=== PATIENT | female | born 1975 | race Caucasian/White ===

== ENCOUNTER → 2020-07-31 08:17 | Outpatient (CLI) | payer BC, SELFPAY ==
--- NOTE | ~2020-07-31 | XR_ITS ---
XR lumbar spine 2-3V DATE: 07/31/2020 09:08 INDICATION: Back pain TECHNIQUE: AP, lateral, coned lateral lumbosacral views COMPARISON: None FINDINGS: There is mild rotatory levoscoliosis of the lumbar spine. There is mildly severe degenerative disease at L1-2 through and L5-S1 and mild degenerative disease e lsewhere in the lumbar spine. No fracture or bone destruction is evident. The included lower thoracic and lumbar pedicles are intac t. The sacroiliac joints appear normal. IMPRESSION: Mild rotatory levoscoliosis and multilevel degenerative disc disease Reviewed, dictated and finalized at location B. AMMUNITION INSPECTOR IMPRESSION: Mild rotatory levoscoliosis and multilevel degenerative disc diseas e
== END ==
PROVIDERS: PCP Family Medicine; Visit Provider Family Medicine
DX: M51.36 Other intervertebral disc degeneration, lumbar region (principal)
CPT/HCPCS: 72100

== ENCOUNTER → 2020-09-10 09:49 | Outpatient (CLI) | payer BC, SELFPAY ==
--- NOTE | ~2020-09-10 | MR_ITS ---
EXAMINATION: MR lumbar spine wo con DATE: 09/10/2020 10:23 INDICATION: Low back pain. Right lower limb pain. TECHNIQUE: Magnetic resonance imaging (MRI) of the lumbar spine was performed without intravenous con trast. Sequences included sagittal T2-weighted FSE, sagittal T2-weighted FS FSE, sagittal T1-weighted FSE, and axial T2-weighted FSE. COMPARISON: None FINDINGS: There is 9 degrees levocurvature of lumbar spine. There is 3 mm retrolisthesis of L3 on L4. Vertebral body heights are normal. There is moderately decreased disc height at L1-L2, mildly decrea sed disc height at L3-L4, and moderately decreased disc height at L5-S1. The distal spinal cord signa l intensity is normal. The conus medullaris is at L1-L2. The following disc levels are specifically d iscussed: L1-L2: The disc is bulging. There is mild bilateral facet joint osteoarthritis. There is mild left ne ural foraminal stenosis. There is mild central canal stenosis. L2-L3: The disc does not extend beyond the endplate margin. There is mild bilateral facet joint osteo arthritis. There is no neural foraminal stenosis. There is no central canal stenosis. L3-L4: The disc is bulging with superimposed left foraminal extrusion. There is mild bilateral facet joint osteoarthritis. There is mild bilateral neural foraminal stenosis. There is mild central canal stenosis. L4-L5: The disc is bulging and has an annular fissure. There is mild right and moderate left facet monalisa int osteoarthritis. There is mild bilateral neural foraminal stenosis. There is mild central canal st enosis. L5-S1: The disc is bulging and has an annular fissure. There is mild right and severe left facet join t osteoarthritis. There is mild bilateral neural foraminal stenosis. There is mild central canal sten osis. IMPRESSION: 1. Moderate lumbar spondylosis. Reviewed, dictated and finalized at location A. LESS WATCHER
== END ==
PROVIDERS: PCP Family Medicine; Visit Provider Family Medicine
DX: M79.659 Pain in unspecified thigh (principal); M47.896 Other spondylosis, lumbar region
CPT/HCPCS: 72148

== ENCOUNTER → 2023-10-12 10:30 | Outpatient (CLI) | payer BC, SELFPAY ==
--- NOTE | ~2023-10-12 | MM_ITS ---
EXAMINATION: MM screening [facility] BI w michael HISTORY: Screening TECHNIQUE: Craniocaudal and mediolateral oblique 3-D tomosynthesis images were obtained and synthetic 2-D images were generated. CAD analysis was submitted and interpreted. COMPARISON: No prior studies for comparison. BREAST PARENCHYMAL COMPOSITION: Not dense: There are scattered areas of fibroglandular density. FINDINGS: There is architectural distortion in the central aspect of both breasts centrally on CC vie ws. There are small masses involving the lower central left breast. IMPRESSION: 1. Bilateral architectural distortion in left breast masses. 2. Recommend comparison to previous outside mammograms to assess stability. BI-RADS Category 0: Incomplete: Needs additional imaging evaluation. Reviewed, dictated and finalized at location A. PER STEMMER OPERATOR
== END ==
PROVIDERS: PCP Nurse Practitioner Family; Visit Provider Nurse Practitioner Family
DX: Z12.31 Encounter for screening mammogram for malignant neoplasm of breast (principal); R92.8 Other abnormal and inconclusive findings on diagnostic imaging of breast
CPT/HCPCS: 77063; 77067

== ENCOUNTER 2023-11-28 08:19 | Outpatient (CLI) | payer BC, SELFPAY ==
--- NOTE | ~2023-11-28 | MMUS_ITS ---
EXAMINATION: MM diagnostic [facility] BI w michael, US breast BI complete HISTORY: Follow-up bilateral breast asymmetries TECHNIQUE: Additional 3-D tomosynthesis images of the breasts were performed and synthetic 2-D images were generated. CAD analysis was submitted and interpreted. High resolution bilateral complete breas t ultrasound was performed. COMPARISON: Comparison to multiple prior studies sequentially, with oldest reviewed study dated 03/02. BREAST PARENCHYMAL COMPOSITION: Not dense: There are scattered areas of fibroglandular density. FINDINGS: MAMMOGRAPHIC FINDINGS: There are no suspicious masses, calcifications or architectural distortion in either breast to sugges t malignancy. ULTRASOUND: Complete bilateral US of all 4 quadrants of the breasts and retroareolar region was reviewed. Right breast: At 11:00, near the areola there is a minimally complicated 4 mm cyst. At 12:00 near the areola there is a 4 mm cyst. Left breast: At 6:00, 5 cm from the nipple, there is a 4 mm cyst. No suspicious masses in either [address] to suggest malignancy. IMPRESSION: 1. No evidence for malignancy in either breast. Benign findings. 2. Routine yearly screening mammogram and regular clinical breast examination are recommended. BI-RADS Category 2: Benign finding(s). Reviewed, dictated and finalized at location A. IMPRESSION: 1. No evidence for malignancy in either breast. Benign findings. 2. Routine yearly screening mammogram and regular clinical breast examination a re recommended. BI-RADS Category 2: Benign finding(s).
== END 2023-11-28 08:20 ==
LOC: MICIMG 08:20
PROVIDERS: PCP Nurse Practitioner Family; Visit Provider Nurse Practitioner Family
DX: R92.8 Other abnormal and inconclusive findings on diagnostic imaging of breast (principal)
CPT/HCPCS: 76641; 77062; 77066; G0279

== ENCOUNTER 2025-02-18 09:52 | Outpatient (CLI) | payer BC, SELFPAY | END 2025-02-18 09:53 | disposition home or self-care (01) | LOC: GOSHIMG 09:52 | PROVIDERS: PCP Nurse Practitioner Family; Visit Provider Nurse Practitioner Family | DX: M25.561 Pain in right knee (principal) | CPT/HCPCS: 73562 ==